=== PATIENT | male | born 1940 | race Caucasian/White ===

== ENCOUNTER → 2017-07-31 | Outpatient (CLI) | payer MEDICARE | LOC: PLD 13:38 → LAB SHORT 13:38 | DX: D48.5 Neoplasm of uncertain behavior of skin (principal) | CPT/HCPCS: 88305 ==

== ENCOUNTER 2024-05-28 05:46 | Observation (INO) | payer MEDICARE, OTHER ==
[~2024-05-28] VITALS: Ht 167.6 cm; Wt 77.9 kg
[2024-05-28] MEDS ORDERED: Nitroglycerin 0.4 MG SUBL SL ONE (06:10)
[2024-05-28 06:19] LABS: BASOPHILS ABSOLUTE AUTO 0.06 K/mm3 (0.00-0.23); BASOPHILS PERCENT AUTO 1 % (0-2); EOSINOPHILS ABSOLUTE AUTO 0.12 K/mm3 (0.00-0.68); EOSINOPHILS PERCENT AUTO 2 % (0-6); Hematocrit 42.7 % (37.0-53.0); Hemoglobin 14.4 g/dL (13.5-17.5); IMMATURE GRAN ABSOLUTE AUTO 0.02 K/mm3 (0.00-0.10); IMMATURE GRAN PERCENT AUTO 0 % (0-1); LYMPHOCYTES ABSOLUTE AUTO 1.34 K/mm3 (0.84-5.20); LYMPHOCYTES PERCENT AUTO 19 % (21-46); MONOCYTES ABSOLUTE AUTO 0.71 K/mm3 (0.16-1.47); MONOCYTES PERCENT AUTO 10 % (4-13); Mean Corpuscular HGB 30.3 pg (26.0-34.0); Mean Corpuscular HGB Conc 33.7 g/dL (31.5-36.5); Mean Corpuscular Volume 90 fL (80-100); Mean Platelet Volume 11.1 fL (9.1-12.4); NEUTROPHILS ABSOLUTE AUTO 4.92 K/mm3 (1.96-9.15); NEUTROPHILS PERCENT AUTO 69 % (41-73); Platelet Count 233 K/mm3 (150-400); RDW Coefficient Variation 13.9 % (11.7-14.2); RDW Standard Deviation 46.2 fL (35.1-46.3); Red Blood Cell Count 4.75 M/mm3 (4.30-5.90); White Blood Cell Count 7.17 K/mm3 (4.00-11.30)
[2024-05-28 06:35] LABS: Albumin/Globulin Ratio 1.3 (0.8-1.8); Bilirubin, Total 0.6 mg/dL (0.1-1.0); Bun/Creatinine Ratio 29.7 (12.0-20.0); Calcium, Blood 9.3 mg/dL (8.5-10.1); Creatinine, Blood 0.87 mg/dL (0.60-1.20); Potassium, Blood 4.1 mmol/L (3.5-5.5)
[2024-05-28] MEDS ORDERED: BENAZEPRIL HCL40 M4 PO (06:46)
[2024-05-28] MEDS ORDERED: MYRBETRIQ25 MG PO (06:46)
[2024-05-28] MEDS ORDERED: Cetirizine HCl10 MG PO (06:47)
[2024-05-28] MEDS ORDERED: TAMSULOSIN HCL0.4 M1 PO (06:47)
[2024-05-28] MEDS ORDERED: AMLODIPINE BESYL5 MG PO (06:48)
[2024-05-28] MEDS ORDERED: ATORVASTATIN CA20 MG PO (06:48)
[2024-05-28] MEDS ORDERED: ELIQUIS5 M3 PO (06:49)
[2024-05-28] MEDS ORDERED: Nitroglycerin 1 INCH/GM PKT TOP ONE (07:25)
[2024-05-28] MEDS ORDERED: Aspirin 325 MG Tab PO ONE (07:25)
[2024-05-28] MEDS ORDERED: Famotidine 20 MG Tab PO SCH (08:00)
[2024-05-28] MEDS ORDERED: Mag Hydrox/Al Hydrox/Simeth 18 ML,Lidocaine 2% Viscous Soln 9 ML,Atropine/Scopalam/Hyos... PO PRN (08:05)
[2024-05-28] MEDS ORDERED: Morphine Sulfate 4 MG/1 ML Injection IV PRN (08:05)
[2024-05-28] MEDS ORDERED: FLU VACC TS2024-25(6MOS UP)/PF 45 MCG/0.5 ML SYRINGE IM SCH (08:05)
[2024-05-28] MEDS ORDERED: Aspirin 81 MG Chew PO SCH (09:00)
[2024-05-28 10:52] VITALS: BP 130/78
[2024-05-28 13:17] VITALS: BP 137/79
[2024-05-28] MEDS ORDERED: Acetaminophen 500 MG Tab PO PRN (13:25)
[2024-05-28] MEDS ORDERED: Insulin Human Lispro 100 Units/ML 3ML Syringe SC SCH (16:30)
[2024-05-28 17:05] VITALS: BP 150/86
--- NOTE | 2024-05-28 18:28 | NUR ---
Admit note/Shift Summary Received report form ED, patient to room via thom burr transfered to bed at approx 1050. Pt had first portion of stress test while in the ER. Pt oriented to room and call light. Pt alert, oriented x4; calm and cooperative with care. Pt reporting 3/10 sharp chest pain, nothing makes it worse or better. Pt denies sob, nausea, dizziness and numb/tingling. Tele av paced, bp stable. Spo2 >90% on ra, breathing even and unlabored. Abd soft nontender, + bt t/o. No edema noted. Other vss. No other acute changes noted. Will continue to monitor.
[2024-05-28 20:53] VITALS: BP 158/88
[2024-05-28] MEDS ORDERED: Docusate Sodium/Senna 1 Tab PO SCH (21:00)
[2024-05-28] MEDS ORDERED: Apixaban 5 MG Tab PO SCH (21:40)
[2024-05-28 23:34] VITALS: BP 130/66
[2024-05-29 03:55] VITALS: BP 132/85
[2024-05-29 04:36] LABS: Bun/Creatinine Ratio 23.8 (12.0-20.0); Calcium, Blood 8.4 mg/dL (8.5-10.1); Creatinine, Blood 0.88 mg/dL (0.60-1.20); Magnesium, Blood 2.2 mg/dL (1.6-2.4); Potassium, Blood 4.1 mmol/L (3.5-5.5)
--- NOTE | 2024-05-29 06:01 | NUR ---
SHIFT SUMMARY PT IS A&O X4, ABLE TO MAKE NEEDS KNOWN, OBEYS COMMANDS, HOLDING APPROPRIATE CONVERSATION, IND IN ROOM, MOVING ALL EXTREMITES EQUALLY. SPO2 GREATER THAN 90% ON RA. NO SIGNS OF RESPIRATORY DISTRESS OBSERVED BY THIS RN. CONTINUOUS TELE MONITORING, PT HAS AV PACED AT A RATE OF 60, BP STABLE WITH MAP GREATER THAN 65, PT REPORTS CHEST PAIN THAT HAS NOT WORSENED OR CHANGED SINCE ADMISSION, STRONG PULSES PRESENT T/O. PT REFUSED ORDED STOOL SOFTENERS CLAIMING HE DOES NOT NEED THEM, PT BEEN NPO SINCE 0000 05/29/24. PT USING URINAL IND, URINE IS YELLOW IN COLOR. BED LOWEST POSITION, CALL LIGHT IN REACH, AWAITING TO GIVE REPORT TO ONCOMING RN.
[2024-05-29 07:48] VITALS: BP 142/85
[2024-05-29] MEDS ORDERED: Atorvastatin 10 MG Tab PO SCH (09:00)
[2024-05-29] MEDS ORDERED: Lisinopril 20 MG Tab PO SCH (09:00)
[2024-05-29] MEDS ORDERED: AmLODIPine Besylate 5 MG Tab PO SCH (09:00)
[2024-05-29 12:25] VITALS: BP 129/78
[2024-05-29] MEDS ORDERED: Aminophylline 250MG / 10ML 10 ML Vial ONE (13:19)
[2024-05-29] MEDS ORDERED: Regadenoson 0.4 MG/5 ML SYRINGE ONE (13:19)
[2024-05-29 15:47] VITALS: BP 138/74
--- NOTE | 2024-05-29 17:11 | NUR ---
SIFT SUMMARY THE PT IS A&OX4, IND IN THE ROOM, AND ABLE TO MAKE HIS NEEDS KNOWN. HE HAD THE SECOND PORTION OF HIS STRESS TEST TODAY AND WE ARE WAITING ON RESULTS TO SEE IF THE PT CAN DISCHARGE OR IF HE NEEDS A CARDIOLOGY CONSULT. HE HAS BEEN W/O ANY ANGINA/CHEST PRESSURE. HE REAMINS ON RA W/ SP02 >93%, HE DENIES ANY SOB. BP REMAINS STABLE. NO ACUTE EVENTS THIS SHIFT. SEE NOTES FOR UPDATES.
[2024-05-29] MEDS ORDERED: FAMO20 PO (18:57)
--- NOTE | 2024-05-29 19:15 | NUR ---
D/C SUMMARY ECHO RESULTS IN AND CLEAR. PT D/C'D AT 1905. ALL BELONGINGS WERE SENT WITH THE PT. MEDICATIONS FAXED TO [facility] PER PT REQUEST. PT'S 2100 PEPCID WAS GIVEN RIGHT BEFORE DISCHARGE BECAUSE IT WAS THE ONLY NEW MEDICATION. VS REMAIN STABLE. ALL D/C QUESTIONS ANSWERED. NO FURTHER NOTES ON THIS PT.
== END 2024-05-29 19:05 | disposition home or self-care (01) ==
LOC: ER 05:46 → PCU 05:47
PROVIDERS: Emergency Medicine; Family Medicine; ADMIT Internal Medicine
DX: R07.89 Other chest pain (principal); I42.9 Cardiomyopathy, unspecified; E11.9 Type 2 diabetes mellitus without complications; K21.9 Gastro-esophageal reflux disease without esophagitis; I49.5 Sick sinus syndrome; E78.5 Hyperlipidemia, unspecified; Z87.891 Personal history of nicotine dependence; Z79.01 Long term (current) use of anticoagulants; Z79.899 Other long term (current) drug therapy; Z95.0 Presence of cardiac pacemaker
CPT/HCPCS: 36415; 71045; 78452; 80048; 80053; 82947; 83735; 84484; 85025; 93005; 93010; 93017; 99285-25; A9270; A9500; G0378; J0280; J2785

== ENCOUNTER → 2025-03-02 | Outpatient (CLI) | payer MEDICARE, OTHER ==
[~2025-03-02] MED LIST: AMLODIPINE BESYL5 MG PO; ATORVASTATIN CA20 MG PO; BENAZEPRIL HCL40 M4 PO; Cetirizine HCl10 MG PO; ELIQUIS5 M3 PO; FAMO20 PO; MYRBETRIQ25 MG PO; TAMSULOSIN HCL0.4 M1 PO
[2025-03-02 20:11] LABS: Hematocrit 45.1 % (37.0-53.0); Hemoglobin 14.9 g/dL (13.5-17.5); Mean Corpuscular HGB Conc 33.0 g/dL (31.5-36.5); Mean Corpuscular Volume 91 fL (80-100); NRBC ABSOLUTE 0.00 K/mm3 (0.00-0.02); NRBC Auto 0.0 /100 WBC (0.0-0.2); Platelet Count 278 K/mm3 (150-400); RDW Coefficient Variation 14.0 % (11.7-14.2); RDW Standard Deviation 46.6 fL (35.1-46.3)
[2025-03-02 20:36] LABS: BAND PERCENT MAN 1 % (0-8); BASOPHILS ABSOLUTE MAN 0.00 K/mm3 (0.00-0.23); BASOPHILS PERCENT MAN 0 % (0-2); EOSINOPHILS ABSOLUTE MAN 0.07 K/mm3 (0.00-0.68); EOSINOPHILS PERCENT MAN 1 % (0-6); LYMPHOCYTES ABSOLUTE MAN 1.75 K/mm3 (0.84-5.20); LYMPHOCYTES PERCENT MAN 23 % (21-46); MONOCYTES ABSOLUTE MAN 0.91 K/mm3 (0.16-1.47); MONOCYTES PERCENT MAN 12 % (4-13); NEUTROPHILS ABSOLUTE MAN 4.88 K/mm3 (1.96-9.15); SEG NEUTROPHILS PERCENT MAN 63 % (41-73)
[2025-03-02 21:00] LABS: Influenza A/2009-H1 Not Detected (NOT DETECT); SARS-Cov-2 (COVID-19), BioFire Not Detected (NOT DETECT)
[2025-03-02 23:15] LABS: Alanine Aminotransfer (ALT/SGP 47.0 U/L (12-78); Albumin, Blood 4.0 g/dL (3.4-5.0); Albumin/Globulin Ratio 1.1 (0.8-1.8); Anion Gap 6.0 mmol/L (3-11); Aspartate Aminotrans (AST/SGOT 29.0 U/L (12-37); Bilirubin, Total 0.4 mg/dL (0.1-1.0); Blood Urea Nitrogen 21.0 mg/dL (8-24); CO2, Blood 26.0 mmol/L (21-32); Calcium, Blood 9.1 mg/dL (8.5-10.1); Chloride, Blood 108.0 mmol/L (98-108); Creatinine, Blood 1.01 mg/dL (0.60-1.20); Globulin, Blood 3.5 g/dL (2.2-4.0); Glucose, Blood 131.0 mg/dL (70-99); Potassium, Blood 4.2 mmol/L (3.5-5.5); Sodium, Blood 136.0 mmol/L (136-145); Total Protein, Blood 7.5 g/dL (6.4-8.2)
== END ==
LOC: LAB 19:18 → LAB SHORT 19:18
PROVIDERS: Nurse Practitioner
DX: E11.9 Type 2 diabetes mellitus without complications (principal); R05.3 Chronic cough; Z86.79 Personal history of other diseases of the circulatory system; Z95.0 Presence of cardiac pacemaker
CPT/HCPCS: 0202U; 80053; 83880; 85007; 85027